=== PATIENT | female | born 1965 | race Caucasian/White ===

== ENCOUNTER 2021-04-02 04:52 | Inpatient (IN) | payer BC ==
[~2021-04-02] VITALS: Ht 170.2 cm; Wt 78.0 kg
[2021-04-02 05:00] VITALS: BP_SYST 116
--- NOTE | 2021-04-02 05:00 | NUR ---
Patient triaged and placed in waiting room. VSS and patient appears in no acute distress at this time. Accompanied by FAM MEMBER, awaiting available bed, and MD notified of need for MSE.
--- NOTE | 2021-04-02 05:36 | NUR ---
ER examining patient iin the triage room.
[2021-04-02] MEDS ORDERED: ONDANSETRON HCL 4 MG/2 ML VIAL IVP ONE (06:00)
[2021-04-02] MEDS ORDERED: NACL 0.9% 1,000 ML IV ONE (06:00)
--- NOTE | 2021-04-02 06:00 | NUR ---
Patient to ER bed PAREDES 1 to gown for evaluation. Side rails up. Report given to CAMILLE ESQUEDA.
--- NOTE | 2021-04-02 06:01 | NUR ---
Received patient to ER w/ c/o right flank and upper abd pain. Patient recently had procedure performed at local facility (colonoscopy) 2nd to h/o multiple gallstones and patient to have stent placed. Introduced self to patient positioned for comfort. continue to monitor. Patient resting quietly. No acute distress noted. Vital signs within normal range.
[2021-04-02 06:05] LABS: BASOPHILS % (AUTO) 0.3 % (0.0-2.0); EOSINOPHILS % (AUTO) 0.2 % (0.0-4.0); HEMATOCRIT 43.6 % (36-48); LYMPHOCYTES # (AUTO) 1.1 K/uL (1.0-5.5); LYMPHOCYTES % (AUTO) 11.7 % (20.5-51.5); MEAN CORPUSCULAR HEMOGLOBIN 30 pg (27-31); MEAN CORPUSCULAR HGB CONC 34 % (32-36); MEAN CORPUSCULAR VOLUME 86 fL (79.0-98.0); MONOCYTES # (AUTO) 0.7 K/uL (0.0-1.0); MONOCYTES % (AUTO) 7.8 % (1.7-9.3); NEUTROPHILS # (AUTO) 7.2 K/uL (1.8-7.7); PLATELET COUNT (AUTO) 202 K/uL (130-430); RED BLOOD CELL COUNT(AUTO) 5.07 MIL/uL (4.2-6.2); RED CELL DISTRIBUTION WIDTH 13.2 % (9.0-15.0)
--- NOTE | 2021-04-02 06:10 | NUR ---
# 20 gauge angiocath placed to Left Forearm. Use of asceptic technique. Opsite placed over site. Blood return noted. No evidence of infiltration noted. Patient tolerated well.
--- NOTE | 2021-04-02 06:10 | NUR ---
Medicated 4mg of zofran dominick MCCABE orders. IVF 0.9% NS infusing with no s/s of infiltration at this time. Will cont to monitor and observe for any adverse reaction.
--- NOTE | 2021-04-02 06:20 | NUR ---
Note undone in EDM - 04/02/21 at 0622 by [email or web address] # 20 gauge angiocath placed to Left Forearm. Use of asceptic technique. Opsite placed over site. Blood return noted. No evidence of infiltration noted. Patient tolerated well.
[2021-04-02 06:21] LABS: CALCIUM 9.3 mg/dL (8.4-11.0); CREATININE 0.92 mg/dL (0.55-1.30); POTASSIUM 4.2 mmol/L (3.5-5.1)
[2021-04-02 06:28] LABS: TOTAL BILIRUBIN 0.6 mg/dL (0.0-1.0)
--- NOTE | 2021-04-02 07:45 | NUR ---
admit orders rec'd
[2021-04-02] MEDS ORDERED: MORPHINE 4 MG INJ. 4 MG/ML VIAL IVP ONE (08:30)
[2021-04-02] MEDS ORDERED: PROCHLORPERAZINE EDISYLATE 10 MG/2 ML VIAL IVP ONE (08:30)
[2021-04-02] MEDS: D5/0.45 NS 1,000 ML IV SCH ×2 (08:55→19:37)
[2021-04-02 08:56] LABS: BILIRUBIN,URINE NEGATIVE (NEGATIVE); BLOOD, URINE NEGATIVE (NEGATIVE); CLARITY/URINE CLEAR (CLEAR); COLOR,URINE YELLOW (YELLOW); GLUCOSE,URINE NEGATIVE (NEGATIVE); KETONES,URINE NEGATIVE (NEGATIVE); LEUKOCYTE ESTERASE ,URINE NEGATIVE (NEGATIVE); NITRITE, URINE NEGATIVE (NEGATIVE); PROTEIN URINE NEGATIVE (NEGATIVE); UROBILINOGEN,URINE 0.2 (0.2-1.0)
--- NOTE | 2021-04-02 09:52 | NUR ---
Pt resting in bed at this time, VSS, respirations even and unlabored, cap refill <3
[2021-04-02] MEDS ORDERED: ONDANSETRON HCL 4 MG/2 ML VIAL ONE (12:44)
[2021-04-02] MEDS ORDERED: ONDANSETRON HCL 4 MG/2 ML VIAL IM PRN (12:45)
[2021-04-02] MEDS ORDERED: MORPHINE 2 MG/ML INJ. SYRINGE ONE (12:45)
[2021-04-02] MEDS: MORPHINE 2 MG/ML INJ. SYRINGE IVP PRN (12:55)
--- NOTE | 2021-04-02 12:55 | NUR ---
Pt medicated for pain as ordered, well tolerated, will cont to monitor.
--- NOTE | 2021-04-02 14:30 | NUR ---
Patient will be admitted to care of Dr Cash . Admitted to Medsurg unit. Will go to room 119 B. Belongings list completed. Complete and up to date summary report printed. SBAR report to be given at bedside with opportunity for questions.
[2021-04-02] MEDS ORDERED: CITA10TA17 PO (14:38)
[2021-04-02] MEDS ORDERED: [UNRECOGNIZED DRUG - OTHER] (14:38)
[2021-04-02] MEDS ORDERED: PROG200C11 PO (14:38)
[2021-04-02] MEDS ORDERED: TRAZ-250 PO (14:38)
[2021-04-02] MEDS ORDERED: PROP20SO PO (14:38)
[2021-04-02] MEDS ORDERED: PROP10TA10 PO (14:38)
--- NOTE | 2021-04-02 14:38 | NUR ---
Medication reconciliation completed with information provided by patient . Any prior medication reconciliation on file was reviewed and corrected.
--- NOTE | 2021-04-02 14:55 | NUR ---
Admission Note Received patient from ER with diagnosis of Pancreatitis. Initial Plan of Care discussed-patient verbalized her understanding. Patient's at bedside. Oriented to room, call light, pain management and safety.
[2021-04-02 15:23] VITALS: BP_SYST 114
--- NOTE | 2021-04-02 16:15 | NUR ---
CONSULTATION PAGED/CALLED Reason for Consultation: PANCREATITIS Person Who was Notified: MANSOOR Consulting Physician: FANI MARTINES PRINTING PRESSMAN Basting Cleaner Specialty: GI Ordering Physician: Skyler AUSTIN
[2021-04-02] MEDS: MORPHINE 4 MG INJ. 4 MG/ML VIAL IVP PRN (17:29)
--- NOTE | 2021-04-02 19:30 | NUR ---
CHANGE OF SHIFT; endorsed by day shift. DX Pancreatitis, kept NPO. no distress. call light within reach.
--- NOTE | 2021-04-02 19:40 | NUR ---
CLOSING NOTE Pt resting quietly in bed with no s/s resp distress, no further c/o pain or discomfort. IVF infusing well to LAC at ordered rate with no s/s infiltration to site. report given to Sehela ESQUEDA. Needs met, call light within reach.
[2021-04-02 20:00] VITALS: BP_SYST 114
--- NOTE | 2021-04-02 20:00 | NUR ---
NOTES: pt. awake, resting. denies any discomfort at this time. IVF infusing. still NPO. instructed to call for help. VS checked.
[2021-04-03] MEDS: MORPHINE 4 MG INJ. 4 MG/ML VIAL IVP PRN ×2 (00:52→08:20)
--- NOTE | 2021-04-03 00:55 | NUR ---
NOTES: pt. medicated for c/o abdominal pain and migraine. ambulated to the restroom. kept NPO.
[2021-04-03 01:00] VITALS: BP_SYST 126
[2021-04-03] MEDS: ONDANSETRON HCL 4 MG/2 ML VIAL IVP PRN ×2 (04:41→20:32)
[2021-04-03] MEDS: D5/0.45 NS 1,000 ML IV SCH (04:41)
--- NOTE | 2021-04-03 04:48 | NUR ---
NOTES: pt. called c/o nausea, medicated with IV Zofran. repositioned self. IVF patent. continue to monitor.
--- NOTE | 2021-04-03 06:34 | NUR ---
CLOSING NOTES; pt. been asleep, no vomiting. IVF continuous. kept NPO. been ambulating to the restroom. for further care and assist. call light within reach.
[2021-04-03 06:54] LABS: BASOPHILS % (AUTO) 0.1 % (0.0-2.0); EOSINOPHILS % (AUTO) 0.2 % (0.0-4.0); HEMATOCRIT 42.8 % (36-48); HEMOGLOBIN 14.6 g/dL (12.0-16.0); LYMPHOCYTES # (AUTO) 0.7 K/uL (1.0-5.5); MEAN CORPUSCULAR HEMOGLOBIN 30 pg (27-31); MEAN CORPUSCULAR HGB CONC 34 % (32-36); MEAN CORPUSCULAR VOLUME 87 fL (79.0-98.0); MONOCYTES # (AUTO) 0.4 K/uL (0.0-1.0); MONOCYTES % (AUTO) 4.1 % (1.7-9.3); NEUTROPHILS # (AUTO) 8.3 K/uL (1.8-7.7); NEUTROPHILS % (AUTO) 88.6 % (40.0-70.0); PLATELET COUNT (AUTO) 193 K/uL (130-430); RED BLOOD CELL COUNT(AUTO) 4.93 MIL/uL (4.2-6.2); RED CELL DISTRIBUTION WIDTH 13.4 % (9.0-15.0); WHITE BLOOD COUNT (AUTO) 9.4 K/uL (4.8-10.8)
[2021-04-03 07:50] LABS: ALBUMIN 3.6 g/dL (3.4-4.8); CALCIUM 8.4 mg/dL (8.4-11.0); CREATININE 0.81 mg/dL (0.55-1.30); PHOSPHORUS 2.6 mg/dL (2.7-4.5); POTASSIUM 3.3 mmol/L (3.5-5.1); TOTAL BILIRUBIN 0.3 mg/dL (0.0-1.0)
[2021-04-03 08:15] VITALS: BP_SYST 137
--- NOTE | 2021-04-03 08:30 | NUR ---
OPENING NOTES: PATIENT RESTING IN BED. BREATHING EVEN AND NON LABORED TO RA. C/O PAIN THE ABDOMEN, PRN PAIN MED GIVEN. FALL, SAFETY AND ASPIRATION MEASURES REINFORCED. CALL LIGHT WITHIN REACH
[2021-04-03] MEDS: LR 1,000 ML IV SCH ×3 (09:47→21:40)
--- NOTE | 2021-04-03 10:00 | NUR ---
SPOKE TO DR. AUSTIN (RE: ELEVATED AMYLASE AND LIPASE): SPOKE TO DR. AUSTIN REGARDING THE CRITICAL RESULT LIPASE AND AMYLASE. PER DR. AUSTIN WILL SEE THE PATIENT.
[2021-04-03 11:25] VITALS: BP_SYST 128
[2021-04-03] MEDS ORDERED: K PHOS 15 MM in NS 250 ML IV ONE (11:30)
[2021-04-03] MEDS: MORPHINE 2 MG/ML INJ. SYRINGE IVP PRN (14:54)
[2021-04-03 15:24] VITALS: BP_SYST 129
--- NOTE | 2021-04-03 19:31 | NUR ---
CLOSING NOTES: PATIENT RESTING IN BED. NO S/S OF ACUTE DISTRESS NOTED. IV INFUSING WELL. CALL LIGHT WITHIN REACH.
[2021-04-04 00:28] VITALS: BP_SYST 132
[2021-04-04 04:46] VITALS: BP_SYST 125
[2021-04-04] MEDS: LR 1,000 ML IV SCH ×3 (05:10→18:17)
[2021-04-04] MEDS: MORPHINE 2 MG/ML INJ. SYRINGE IVP PRN (05:19)
[2021-04-04 07:16] LABS: BASOPHILS % (AUTO) 0.1 % (0.0-2.0); EOSINOPHILS % (AUTO) 0.3 % (0.0-4.0); HEMOGLOBIN 13.7 g/dL (12.0-16.0); LYMPHOCYTES # (AUTO) 0.8 K/uL (1.0-5.5); LYMPHOCYTES % (AUTO) 9.8 % (20.5-51.5); MEAN CORPUSCULAR HEMOGLOBIN 30 pg (27-31); MEAN CORPUSCULAR HGB CONC 34 % (32-36); MEAN CORPUSCULAR VOLUME 86 fL (79.0-98.0); MONOCYTES # (AUTO) 0.3 K/uL (0.0-1.0); MONOCYTES % (AUTO) 4.3 % (1.7-9.3); NEUTROPHILS # (AUTO) 6.9 K/uL (1.8-7.7); NEUTROPHILS % (AUTO) 85.5 % (40.0-70.0); PLATELET COUNT (AUTO) 177 K/uL (130-430); RED BLOOD CELL COUNT(AUTO) 4.64 MIL/uL (4.2-6.2); RED CELL DISTRIBUTION WIDTH 13.3 % (9.0-15.0); WHITE BLOOD COUNT (AUTO) 8.1 K/uL (4.8-10.8)
--- NOTE | 2021-04-04 07:59 | NUR ---
DR TAYLOR CAME TO EVALUATE THE PATIENT. DR AUSTIN CALLED FOR PAIN MEDICATION.
[2021-04-04 08:13] LABS: ALBUMIN 3.5 g/dL (3.4-4.8); CALCIUM 9.3 mg/dL (8.4-11.0); CREATININE 0.59 mg/dL (0.55-1.30); POTASSIUM 3.8 mmol/L (3.5-5.1); TOTAL BILIRUBIN 0.6 mg/dL (0.0-1.0)
[2021-04-04 08:42] VITALS: BP_SYST 133
--- NOTE | 2021-04-04 08:52 | NUR ---
dr boston called back again for pain medication order.
[2021-04-04] MEDS: LORazepam 2 MG/ML VIAL IVP PRN (08:56)
--- NOTE | 2021-04-04 10:00 | NUR ---
NO DUE MEDICATION AT THIS TIME.
[2021-04-04 11:21] VITALS: BP_SYST 126
[2021-04-04] MEDS: KETOROLAC TROMETHAMINE 30 MG VIAL IVP PRN (12:12)
[2021-04-04 15:40] VITALS: BP_SYST 126
[2021-04-04] MEDS ORDERED: KETOROLAC TROMETHAMINE 30 MG VIAL IVP PRN ×2 (17:15)
--- NOTE | 2021-04-04 17:59 | NUR ---
STILL WITH LEFT FOREARM #20 WITH LR AT 150CC/HR INFUSING ON WELL. WILL CONTINUE TO MONITOR PATIENTS STATUS.
[2021-04-04] MEDS ORDERED: NON-FORMULARY MEDICATION (Progesterone,Micronized (Progesterone) 200 MG) PO SCH (18:00)
[2021-04-04] MEDS ORDERED: traZODone HCL 50 MG TABLET (DESYREL) PO PRN (18:00)
[2021-04-04 20:00] VITALS: BP_SYST 130
[2021-04-04] MEDS: PROPRANOLOL HCL 10 MG TABLET (INDERAL) PO SCH (21:38)
[2021-04-05] MEDS: KETOROLAC TROMETHAMINE 30 MG VIAL IVP PRN (00:25)
[2021-04-05] MEDS: LR 1,000 ML IV SCH (00:25)
[2021-04-05 01:00] VITALS: BP_SYST 129
[2021-04-05] MEDS: LORazepam 2 MG/ML VIAL IVP PRN (05:06)
[2021-04-05 07:03] LABS: BASOPHILS % (AUTO) 0.5 % (0.0-2.0); EOSINOPHILS # (AUTO) 0.3 K/uL (0.0-0.4); EOSINOPHILS % (AUTO) 3.5 % (0.0-4.0); HEMATOCRIT 39.5 % (36-48); HEMOGLOBIN 13.5 g/dL (12.0-16.0); LYMPHOCYTES # (AUTO) 0.9 K/uL (1.0-5.5); LYMPHOCYTES % (AUTO) 12.3 % (20.5-51.5); MEAN CORPUSCULAR HEMOGLOBIN 30 pg (27-31); MEAN CORPUSCULAR HGB CONC 34 % (32-36); MEAN CORPUSCULAR VOLUME 86 fL (79.0-98.0); MONOCYTES # (AUTO) 0.5 K/uL (0.0-1.0); MONOCYTES % (AUTO) 6.8 % (1.7-9.3); NEUTROPHILS # (AUTO) 5.8 K/uL (1.8-7.7); NEUTROPHILS % (AUTO) 76.9 % (40.0-70.0); PLATELET COUNT (AUTO) 192 K/uL (130-430); RED BLOOD CELL COUNT(AUTO) 4.57 MIL/uL (4.2-6.2); RED CELL DISTRIBUTION WIDTH 13.6 % (9.0-15.0); WHITE BLOOD COUNT (AUTO) 7.5 K/uL (4.8-10.8)
--- NOTE | 2021-04-05 08:00 | NUR ---
NOTES PATIENT AAOX 4. LUNGS BILATERALLY CLEAR. ABDOMEN SOFT AND NON DISTENDED BUT BIT TENDER, REFUSED TO HAVE MORE PAIN MEDICATION. HAS IV ACCESS ON THE LEFT FOREARM BUT LEAKING NOTED. CALL LIGHTS WITHIN REACH. BED LOW POSITION, ALARMED AND LOCKED. WILL CONTINUE TO MONITOR PATIENTS STATUS. VERBALIZED BIT ABDOMINAL PAIN, BUT REFUSED. VITALS SIGNS STABLE.
[2021-04-05 08:43] LABS: ALBUMIN 3.2 g/dL (3.4-4.8); CALCIUM 8.9 mg/dL (8.4-11.0); CREATININE 0.71 mg/dL (0.55-1.30); POTASSIUM 4.4 mmol/L (3.5-5.1); TOTAL BILIRUBIN 0.5 mg/dL (0.0-1.0)
[2021-04-05] MEDS ORDERED: [UNRECOGNIZED DRUG - OTHER] PO SCH (09:00)
[2021-04-05] MEDS ORDERED: CITALOPRAM HYDROBROMIDE 20 MG TABLET PO SCH (09:00)
--- NOTE | 2021-04-05 09:00 | NUR ---
PAIN FREE FROM ABDOMINAL AREA VERBALIZED.
[2021-04-05] MEDS: PROPRANOLOL HCL 10 MG TABLET (INDERAL) PO SCH (09:59)
--- NOTE | 2021-04-05 10:00 | NUR ---
CHEVY ESQUEDA PLACE ANOTHER IV ACCESS ON THE RIGHT FOREARM #22. ON THE LEFT FOREARM IV INFILTRATED.
[2021-04-05 10:01] VITALS: BP_SYST 130
--- NOTE | 2021-04-05 10:30 | NUR ---
HANGED THE LR AT 150CC/HR INFUSING ON WELL.
--- NOTE | 2021-04-05 12:30 | NUR ---
ON SOFT LOW BLAND DIET. CALLED ANTONI THE MEDIA PRODUCTION SUPPORT MANAGER TO DO INSTRUCTIONS ON THE DIET AND MATERIAL GIVEN TO THE PATIENT.
--- NOTE | 2021-04-05 13:00 | NUR ---
NO NAUSEA NOR VOMITTING NOR ABDOMINAL PAIN NOTED.
--- NOTE | 2021-04-05 13:30 | NUR ---
DR GEOVANNA DUKE CAME AND SEE THE PATIENT FOR POSSIBLE DISCHARGE HOME
[2021-04-05 13:47] VITALS: BP_SYST 128
--- NOTE | 2021-04-05 14:05 | NUR ---
Nutrition Note and Education RD was consulted by pt's primary RN regarding nutrition education prior to D/C. Please refer to interdisciplinary teaching record for details.
--- NOTE | 2021-04-05 14:35 | NUR ---
PATIENT LEFT IN STABLE CONDITION. WITH THE . IV ACCESS X 2 REMOVED PLACED BAND AID. ON IT. SDCH I D BAND REMOVED. DISCHARGE INSTRUCTIONS GIVEN TO THE PATIENT. CONTINUE SAME MEDICATIONS ORDERED PREVIOUSLY AND TO SEE DR GEOVANNA DUKE IN ONE WEEK. AND MAKE APPOINTMENT TO SEE [facility] FOR FOLLOW UP OF THE STENT IN TWO WEEK.S VITALS SIGNS STABLE. AFEBRILE. NO S/S OF DISTRESS OR PAIN NOTED.
[2021-04-05 15:06] VITALS: BP_SYST 113
== END 2021-04-05 14:35 | disposition home or self-care (01) | DRG 444 ==
LOC: SED 04:52 → SMU 07:40
PROVIDERS: ADMIT Preventive Medicine Preventive Medicine/Occupational Environmental Medicine; ATTEND Preventive Medicine Preventive Medicine/Occupational Environmental Medicine
DX: K80.70 Calculus of gallbladder and bile duct without cholecystitis without obstruction (principal); K85.90 Acute pancreatitis without necrosis or infection, unspecified; E87.1 Hypo-osmolality and hyponatremia; R73.9 Hyperglycemia, unspecified; R74.01 Elevation of levels of liver transaminase levels; E88.09 Other disorders of plasma-protein metabolism, not elsewhere classified; F32.A Depression, unspecified; E83.39 Other disorders of phosphorus metabolism; Z20.822 Contact with and (suspected) exposure to COVID-19; E03.9 Hypothyroidism, unspecified; G43.909 Migraine, unspecified, not intractable, without status migrainosus; E87.6 Hypokalemia; Z88.8 Allergy status to other drugs, medicaments and biological substances
CPT/HCPCS: 36415; 76376; 80053; 81003; 82150; 83690; 83735; 84100; 85025; 96361; 96374; 96375; 96376; 99285; J0780; J1885; J2060; J2270; J2405; J7050; Q9967

== ENCOUNTER 2021-04-08 17:19 | Inpatient (IN) | payer BC, SELFPAY ==
[~2021-04-08] VITALS: Ht 170.2 cm; Wt 73.9 kg
[~2021-04-08 17:19] MED LIST: CITA10TA17 PO; PROG200C11 PO; PROP10TA10 PO; PROP20SO PO; TRAZ-250 PO; [UNRECOGNIZED DRUG - OTHER]
[2021-04-08 17:25] VITALS: BP_SYST 124
--- NOTE | 2021-04-08 17:25 | NUR ---
PT TRIAGED AND PLACED IN WAITING ROOM FOR BED IN MAIN ER
--- NOTE | 2021-04-08 18:56 | NUR ---
ER DR. BRYAN EXAMINING PT IN LOBBY
[2021-04-08] MEDS ORDERED: ONDANSETRON HCL 4 MG/2 ML VIAL IVP ONE (19:00)
[2021-04-08] MEDS ORDERED: MORPHINE 4 MG INJ. 4 MG/ML VIAL IVP ONE (19:00)
[2021-04-08 19:48] LABS: BASOPHILS % (AUTO) 0.3 % (0.0-2.0); EOSINOPHILS # (AUTO) 0.2 K/uL (0.0-0.4); EOSINOPHILS % (AUTO) 1.8 % (0.0-4.0); HEMATOCRIT 46.8 % (36-48); HEMOGLOBIN 15.7 g/dL (12.0-16.0); LYMPHOCYTES # (AUTO) 1.7 K/uL (1.0-5.5); LYMPHOCYTES % (AUTO) 16.5 % (20.5-51.5); MEAN CORPUSCULAR HEMOGLOBIN 29 pg (27-31); MEAN CORPUSCULAR HGB CONC 34 % (32-36); MEAN CORPUSCULAR VOLUME 86 fL (79.0-98.0); MONOCYTES # (AUTO) 0.7 K/uL (0.0-1.0); MONOCYTES % (AUTO) 6.4 % (1.7-9.3); NEUTROPHILS # (AUTO) 7.6 K/uL (1.8-7.7); PLATELET COUNT (AUTO) 298 K/uL (130-430); RED BLOOD CELL COUNT(AUTO) 5.43 MIL/uL (4.2-6.2); RED CELL DISTRIBUTION WIDTH 13.6 % (9.0-15.0); WHITE BLOOD COUNT (AUTO) 10.2 K/uL (4.8-10.8)
[2021-04-08 20:08] LABS: CALCIUM 9.7 mg/dL (8.4-11.0); CREATININE 0.84 mg/dL (0.55-1.30); POTASSIUM 3.5 mmol/L (3.5-5.1)
[2021-04-08 20:14] LABS: ALBUMIN 4.3 g/dL (3.4-4.8); TOTAL BILIRUBIN 0.5 mg/dL (0.0-1.0)
--- NOTE | 2021-04-08 21:00 | NUR ---
Patient to ER bed 3 to gown for evaluation. Side rails up.
--- NOTE | 2021-04-08 21:05 | NUR ---
Patient AAOx4 and ambulatory from home c/o worsening abdominal pain. stated she was hospital recently on 04/05/21 for stent placement in her gallbladder. was working to advance her diet however stating having pain in the area of her pancreas. denies any SOB, chest pain, N/V/D. currently stating 10/10 on the pain scale.
--- NOTE | 2021-04-08 21:15 | NUR ---
# 20 gauge angiocath placed to LEFT AC. Use of asceptic technique. Opsite placed over site. Blood return noted. Flushed with 10 cc of normal saline. No evidence of infiltration noted. Patient tolerated well.
--- NOTE | 2021-04-08 21:20 | NUR ---
CT SCAN CONSENT SIGNED. AND PT TAKEN TO RADIOLOGY VIA [facility] AT RADIOLOGY STAFF.
--- NOTE | 2021-04-08 21:29 | NUR ---
PT RETURNED FROM CT SCAN VIA GURNEY BY RADIOLOGY STAFF. RE-ATTACHED TO [employer].
[2021-04-08] MEDS ORDERED: LR 1,000 ML IV ONE (21:45)
[2021-04-08] MEDS ORDERED: HYDROmorphone 1 MG/ML INJ. CARTRIDGE IVP ONE (22:00)
--- NOTE | 2021-04-08 22:20 | NUR ---
Dr. Bolden at bedside to give update on condition with patient.
--- NOTE | 2021-04-08 23:17 | NUR ---
COVID AND MRSA SWAB COLLECTED AND SENT TO LAB.
--- NOTE | 2021-04-08 23:30 | NUR ---
Patient's code status is [FULL CODE] paperwork completed and placed in chart.
[2021-04-08] MEDS ORDERED: THEA200C PO (23:43)
--- NOTE | 2021-04-08 23:43 | NUR ---
Medication reconciliation completed with information provided by Patient. Any prior medication reconciliation on file was reviewed and corrected.
[2021-04-09 00:20] LABS: BILIRUBIN,URINE NEGATIVE (NEGATIVE); BLOOD, URINE NEGATIVE (NEGATIVE); CLARITY/URINE CLEAR (CLEAR); COLOR,URINE YELLOW (YELLOW); GLUCOSE,URINE NEGATIVE (NEGATIVE); KETONES,URINE 1+ (NEGATIVE); LEUKOCYTE ESTERASE ,URINE NEGATIVE (NEGATIVE); NITRITE, URINE NEGATIVE (NEGATIVE); PROTEIN URINE NEGATIVE (NEGATIVE); UROBILINOGEN,URINE 0.2 (0.2-1.0)
[2021-04-09] MEDS ORDERED: MORPHINE 4 MG INJ. 4 MG/ML VIAL IVP PRN (00:45)
[2021-04-09] MEDS ORDERED: MORPHINE 2 MG/ML INJ. SYRINGE IVP PRN (00:45)
[2021-04-09] MEDS: D5/0.45 NS 1,000 ML IV SCH ×2 (00:55→09:30)
--- NOTE | 2021-04-09 00:56 | NUR ---
Medicated per MD orders. IVF infusing with no s/s of infiltration at this time. PT STATED HAVING 7/10 ON THE PAIN SCALE. PRN MORPHINE Q4 GIVEN ORDERED PER GEOVANNA.
--- NOTE | 2021-04-09 02:46 | NUR ---
Transfer to [facility] via GURNEY TO ROOM 116B. Licensed nurse present. IV present no signs or symptoms of infiltration.
--- NOTE | 2021-04-09 03:22 | NUR ---
ADMISSION NOTE Received patient from ER via gurney. Patient admitted with diagnosis of gallstones. Patient is awake, alert, oriented X 4. Patient oriented to hospital room, call light, toileting, pain management and safety-teach back done. Patient informed that their room number is 116B. Personal belongings checked and Belongings List documented. Call light within reach.
--- NOTE | 2021-04-09 03:25 | NUR ---
CONSULTATION CALLED FOR DR. FANI MARTINES IS AERONAUTICAL ENGINEERING OFFICER FOR CONSULT OF GALLSTONES ORDER BY GEOVANNA ROLAND SPOKE WITH Addendum: 04/09/21 at 0333 by Nas Hoff CNA SPOKE WITH ELEANOR
--- NOTE | 2021-04-09 03:30 | NUR ---
CONSULTATION CALLED FOR DR. SAXENA FOR CONSULT OF GALLSTONES ORDER BY GEOVANNA ROLAND SPOKE WITH ELEANOR
--- NOTE | 2021-04-09 03:37 | NUR ---
Paged Dr. Cerna Mark
[2021-04-09 03:47] VITALS: BP_SYST 110
[2021-04-09] MEDS: HYDROmorphone 1 MG/ML INJ. CARTRIDGE IVP PRN ×4 (04:33→20:07)
--- NOTE | 2021-04-09 05:44 | NUR ---
Nutrition Update Dax Scale 18 noted. Pt admitted for Gallstones Diet: NPO BMI: 25.6 kg/m2 RD to follow per nutrition care standards.
[2021-04-09 08:28] VITALS: BP_SYST 124
--- NOTE | 2021-04-09 09:45 | NUR ---
OPENING Late entry due to patient care 08:10- patient laying in bed. Does not appear to be in respiratory distress. C/o right lower quadrant pain radiating to her back 11/20. Ensouraged deep breathing exercises. Medicated with [address] MARTINES at the bedside. reviewed CT abdomen report from yesterday and discussed with patient. Plan of care discussed with patient. patient verbalized understanding
[2021-04-09 12:35] VITALS: BP_SYST 121
--- NOTE | 2021-04-09 14:27 | NUR ---
1245 TO [facility] PROCEDURE, GOT 1MG IVP DILAUDID FOR THE ABDOMINAL PAIN , 8/10 SCALE 1400 BACK FROM THE PROCEDURE, RESULT NOT READY YET, BOTH THE PATIENT AND EXPLAINED , IN BETWEEN DILAUDID, PATIENT CAN HAVE TORADOL IF SHE NEEDS IT. REMAINS NPO WITH IVF RUNNING CONTINUOULSY.
[2021-04-09] MEDS: KETOROLAC TROMETHAMINE 30 MG VIAL IVP PRN (17:01)
[2021-04-09 18:10] VITALS: BP_SYST 107
[2021-04-09 20:00] VITALS: BP_SYST 112
--- NOTE | 2021-04-09 22:00 | NUR ---
ROUNDING NOTES Patient resting in bed - no s/s pain or distress noted. Respirations even and unlabored - head of bed elevated. IV site patent - no s/s redness, infection, or infiltration. Bed locked and in lowest position. Call light within reach - bed alarm on.
[2021-04-10] VITALS: BP_SYST 115
[2021-04-10] MEDS: KETOROLAC TROMETHAMINE 30 MG VIAL IVP PRN ×2 (00:55→09:46)
[2021-04-10] MEDS: D5/0.45 NS 1,000 ML IV SCH ×3 (00:56→09:50)
[2021-04-10] MEDS: HYDROmorphone 1 MG/ML INJ. CARTRIDGE IVP PRN ×2 (05:17→14:20)
[2021-04-10] MEDS: ONDANSETRON HCL 4 MG/2 ML VIAL IVP PRN ×2 (05:24→14:23)
[2021-04-10 07:20] LABS: BASOPHILS % (AUTO) 0.1 % (0.0-2.0); EOSINOPHILS % (AUTO) 0.2 % (0.0-4.0); HEMATOCRIT 39.3 % (36-48); HEMOGLOBIN 13.2 g/dL (12.0-16.0); LYMPHOCYTES # (AUTO) 0.8 K/uL (1.0-5.5); MEAN CORPUSCULAR HEMOGLOBIN 29 pg (27-31); MEAN CORPUSCULAR HGB CONC 34 % (32-36); MEAN CORPUSCULAR VOLUME 86 fL (79.0-98.0); MONOCYTES # (AUTO) 1.1 K/uL (0.0-1.0); MONOCYTES % (AUTO) 8.1 % (1.7-9.3); NEUTROPHILS % (AUTO) 85.6 % (40.0-70.0); PLATELET COUNT (AUTO) 210 K/uL (130-430); RED BLOOD CELL COUNT(AUTO) 4.57 MIL/uL (4.2-6.2); RED CELL DISTRIBUTION WIDTH 13.3 % (9.0-15.0)
[2021-04-10 07:53] LABS: ALBUMIN 2.9 g/dL (3.4-4.8); CALCIUM 8.2 mg/dL (8.4-11.0); CREATININE 0.72 mg/dL (0.55-1.30); PHOSPHORUS 2.3 mg/dL (2.7-4.5); POTASSIUM 3.5 mmol/L (3.5-5.1); TOTAL BILIRUBIN 0.6 mg/dL (0.0-1.0)
[2021-04-10 08:00] VITALS: BP_SYST 124
[2021-04-10] MEDS ORDERED: NA PHOS 15 MM in NS 250 ML IV ONE (11:30)
[2021-04-10 12:35] VITALS: BP_SYST 129
[2021-04-10 16:55] VITALS: BP_SYST 131
--- NOTE | 2021-04-10 17:11 | NUR ---
TO OR: To Or per el by Or staff. Preop check list done. CHG bath rendered.Npo maintained.
[2021-04-10] MEDS ORDERED: fentaNYL CITRATE 250 MCG/5 ML AMP IV ONE (17:20)
[2021-04-10] MEDS ORDERED: KETOROLAC TROMETHAMINE 30 MG VIAL IVP ONE (17:20)
[2021-04-10] MEDS ORDERED: BUPIVACAINE /EPINEPHRINE/PF 0.25% 30 ML VIAL INJ ONE (17:20)
[2021-04-10] MEDS ORDERED: NS IRRIG SOLN 1000 ML IR ONE (17:20)
[2021-04-10] MEDS ORDERED: CEFAZOLIN 2 GM IVPB PREMIX 50 ML IV ONE (17:20)
[2021-04-10] MEDS ORDERED: PROPOFOL 200MG/ 20ML VIAL (DIPRIVAN) IV ONE (17:20)
[2021-04-10] MEDS ORDERED: LR 1,000 ML IV.SOLN IV ONE (17:20)
[2021-04-10] MEDS ORDERED: WATER FOR IRRIGATION,STERILE 1,000 ML IRRIG.SOLN IR ONE (17:20)
[2021-04-10] MEDS ORDERED: SEVOFLURANE 15 MIN GAS INH ONE (17:20)
[2021-04-10] MEDS ORDERED: MIDAZOLAM HCL 5 MG/5 ML VIAL IVP ONE (17:20)
[2021-04-10] MEDS ORDERED: ROCURONIUM BROMIDE 10 MG/ML (ZEMURON) IV ONE (17:20)
[2021-04-10] MEDS ORDERED: PHENYLEPHRINE HCL 10 MG/ML VIAL (NEOSYNEPHRINE) IV ONE (17:20)
[2021-04-10] MEDS ORDERED: METOCLOPRAMIDE HCL 10 MG/2 ML VIAL IVP ONE (17:20)
[2021-04-10] MEDS ORDERED: GLYCOPYRROLATE 0.2 MG/ML VIAL IJ ONE (17:20)
[2021-04-10] MEDS ORDERED: ONDANSETRON HCL 4 MG/2 ML VIAL IVP ONE (17:20)
[2021-04-10] MEDS ORDERED: SUCCINYLCHOLINE CHLORIDE 20 MG/ML(QUELICIN) IVP ONE (17:20)
[2021-04-10] MEDS ORDERED: HYDROmorphone 1 MG/ML INJ. CARTRIDGE IVP PRN (17:45)
[2021-04-10] MEDS ORDERED: LR 1,000 ML IV SCH (17:45)
[2021-04-10] MEDS ORDERED: ONDANSETRON HCL 4 MG/2 ML VIAL IVP PRN (17:45)
[2021-04-10] MEDS ORDERED: HYDROmorphone 2 MG/ML VIAL IVP PRN (17:45)
[2021-04-10] MEDS ORDERED: KETOROLAC TROMETHAMINE 30 MG VIAL IVP PRN (17:45)
--- NOTE | 2021-04-10 18:53 | NUR ---
Evening Rounds: Patient still at OR.
[2021-04-10] MEDS ORDERED: ACETAMINOPHEN 325 MG TABLET PO PRN (19:00)
[2021-04-10] MEDS ORDERED: NALOXONE HCL 0.4 MG/ML AMP (NARCAN) IVP PRN (19:00)
--- NOTE | 2021-04-10 19:15 | NUR ---
OPENING NOTES Patient is still undergoing surgery at this time - not in room.
[2021-04-10] MEDS ORDERED: HYDROmorphone 1 MG/ML INJ. CARTRIDGE ONE (20:01)
[2021-04-10] MEDS ORDERED: ONDANSETRON HCL 4 MG/2 ML VIAL ONE (20:05)
[2021-04-10 20:45] VITALS: BP_SYST 137
--- NOTE | 2021-04-10 20:45 | NUR ---
RETURN FROM OR 4 incisions and LEILA drain. Patient resting in bed, by bedside.
[2021-04-10] MEDS: CEFAZOLIN 2 GM IVPB PREMIX 50 ML IV SCH (21:13)
[2021-04-10] MEDS: metroNIDAZOLE 500 mg/NS 100 ML IV SCH (21:15)
[2021-04-11] MEDS: D5/0.45 NS 1,000 ML IV SCH ×4 (01:30→20:56)
[2021-04-11 01:53] VITALS: BP_SYST 110
[2021-04-11] MEDS: HYDROmorphone 1 MG/ML INJ. CARTRIDGE IVP PRN ×4 (02:48→21:11)
[2021-04-11] MEDS: ONDANSETRON HCL 4 MG/2 ML VIAL IVP PRN (02:54)
[2021-04-11] MEDS: metroNIDAZOLE 500 mg/NS 100 ML IV SCH (02:54)
[2021-04-11] MEDS: CEFAZOLIN 2 GM IVPB PREMIX 50 ML IV SCH (03:03)
--- NOTE | 2021-04-11 04:00 | NUR ---
ROUNDING NOTES Patient resting in bed - no s/s pain or distress noted. Respirations even and unlabored - head of bed elevated. IV site patent - no s/s redness, infection, or infiltration. Bed locked and in lowest position. Call light within reach - bed alarm on. LEILA drained of 100cc
[2021-04-11 07:09] LABS: BASOPHILS % (AUTO) 0.1 % (0.0-2.0); EOSINOPHILS % (AUTO) 0.1 % (0.0-4.0); HEMATOCRIT 35.2 % (36-48); HEMOGLOBIN 12.1 g/dL (12.0-16.0); LYMPHOCYTES # (AUTO) 0.6 K/uL (1.0-5.5); LYMPHOCYTES % (AUTO) 4.7 % (20.5-51.5); MEAN CORPUSCULAR HEMOGLOBIN 29 pg (27-31); MEAN CORPUSCULAR HGB CONC 34 % (32-36); MEAN CORPUSCULAR VOLUME 85 fL (79.0-98.0); MONOCYTES # (AUTO) 0.7 K/uL (0.0-1.0); MONOCYTES % (AUTO) 5.6 % (1.7-9.3); NEUTROPHILS # (AUTO) 10.7 K/uL (1.8-7.7); NEUTROPHILS % (AUTO) 89.5 % (40.0-70.0); PLATELET COUNT (AUTO) 194 K/uL (130-430); RED BLOOD CELL COUNT(AUTO) 4.13 MIL/uL (4.2-6.2); RED CELL DISTRIBUTION WIDTH 13.4 % (9.0-15.0)
[2021-04-11 07:18] LABS: ALBUMIN 2.3 g/dL (3.4-4.8); CALCIUM 8.1 mg/dL (8.4-11.0); CREATININE 0.73 mg/dL (0.55-1.30); POTASSIUM 3.7 mmol/L (3.5-5.1); TOTAL BILIRUBIN 0.5 mg/dL (0.0-1.0)
--- NOTE | 2021-04-11 07:23 | NUR ---
CLOSING NOTES Patient resting in bed - no s/s pain or distress noted. Respirations even and unlabored - head of bed elevated. IV site patent - no s/s redness, infection, or infiltration. Bed locked and in lowest position. Call light within reach - bed alarm on. AT APPROXIMATELY 0645 NEW IV INSERTED RFA 22G
[2021-04-11 08:20] VITALS: BP_SYST 131
[2021-04-11] MEDS: KETOROLAC TROMETHAMINE 30 MG VIAL IVP PRN ×2 (08:49→18:03)
--- NOTE | 2021-04-11 09:07 | NUR ---
SURGEON CALLED: SPOKE WITH DR SAXENA ,RELAYED LAB RESULTS.WITH ORDERS GIVE LEVAQUIN 750MG IV DAILY,REPEAT CBC AND BMP IN AM.
[2021-04-11 12:00] VITALS: BP_SYST 114
--- NOTE | 2021-04-11 15:45 | NUR ---
PT EVAL COMPLETED. PATIENT IS INDEPENDENT IN ALL ASPECTS OF FUNCTIONAL MOBILITY. SKILLED PT IS NOT INDICATED AT THIS TIME.
[2021-04-11 18:13] VITALS: BP_SYST 131
--- NOTE | 2021-04-11 21:15 | NUR ---
C/O RIGHT LOWER ABDOMINAL PAIN RATED 7/10. DILAUDID IV GIVEN ORDERED.
[2021-04-11] MEDS: LORazepam 2 MG/ML VIAL IVP PRN (23:19)
--- NOTE | 2021-04-11 23:22 | NUR ---
c/o anxiety. Ativan given as ordered.
[2021-04-12 04:18] VITALS: BP_SYST 132
[2021-04-12 08:13] VITALS: BP_SYST 131
--- NOTE | 2021-04-12 08:13 | NUR ---
INITIAL ROUNDS Received pt AAOx4, no s/s resp distress, c/o pain to abd-will check on pain medication. IVF infusing well to RFA at ordered rate with no s/s infiltration to site. Plan of care for the day reviewed with pt-pt verbalized her understanding. Noted 4 x small dressings to abd with LEILA to right abd with minimal pink drainage. Pain management, disease process, skin and safety discussed-teach back done. call light within reach.
[2021-04-12 09:37] LABS: BASOPHILS % (AUTO) 0.1 % (0.0-2.0); EOSINOPHILS # (AUTO) 0.1 K/uL (0.0-0.4); EOSINOPHILS % (AUTO) 1.2 % (0.0-4.0); HEMATOCRIT 38.3 % (36-48); LYMPHOCYTES # (AUTO) 0.7 K/uL (1.0-5.5); LYMPHOCYTES % (AUTO) 8.2 % (20.5-51.5); MEAN CORPUSCULAR HEMOGLOBIN 29 pg (27-31); MEAN CORPUSCULAR HGB CONC 34 % (32-36); MEAN CORPUSCULAR VOLUME 86 fL (79.0-98.0); MONOCYTES # (AUTO) 0.2 K/uL (0.0-1.0); MONOCYTES % (AUTO) 2.8 % (1.7-9.3); NEUTROPHILS # (AUTO) 7.7 K/uL (1.8-7.7); NEUTROPHILS % (AUTO) 87.7 % (40.0-70.0); PLATELET COUNT (AUTO) 263 K/uL (130-430); RED BLOOD CELL COUNT(AUTO) 4.45 MIL/uL (4.2-6.2); RED CELL DISTRIBUTION WIDTH 13.3 % (9.0-15.0); WHITE BLOOD COUNT (AUTO) 8.8 K/uL (4.8-10.8)
[2021-04-12] MEDS: HYDROmorphone 1 MG/ML INJ. CARTRIDGE IVP PRN (09:58)
[2021-04-12 10:06] LABS: ALBUMIN 2.7 g/dL (3.4-4.8); CALCIUM 8.8 mg/dL (8.4-11.0); CREATININE 0.65 mg/dL (0.55-1.30); POTASSIUM 3.7 mmol/L (3.5-5.1); TOTAL BILIRUBIN 0.5 mg/dL (0.0-1.0)
[2021-04-12 11:26] LABS: C-REACTIVE PROTEIN QUANT 22.4 mg/dL (0-0.5)
[2021-04-12 12:12] LABS: ERYTHROCYTE SEDIMENTATION RATE 55 MM/HR (0-20)
[2021-04-12 16:05] VITALS: BP_SYST 110
[2021-04-12] MEDS: HYDROcodone/ACETAMIN 5-325 MG TAB (NORCO/ VICODIN) PO PRN ×2 (16:08→22:15)
[2021-04-12] MEDS: D5/0.45 NS 1,000 ML IV SCH ×2 (16:10→22:00)
--- NOTE | 2021-04-12 19:07 | NUR ---
CLOSING NOTE Pt observed ambulating in the hallway, no s/s resp distress, no c/o pain or discomfort. Pt belching but not passing gas yet. IVF infusing well to RFA at ordered rate with no s/s infiltration to site. Pt encouraged to use the incentive spirometer. Needs met, call light within reach.
[2021-04-12 22:07] VITALS: BP_SYST 127
[2021-04-13 01:14] VITALS: BP_SYST 134
[2021-04-13] MEDS: LORazepam 2 MG/ML VIAL IVP PRN (02:02)
[2021-04-13] MEDS: D5/0.45 NS 1,000 ML IV SCH ×2 (06:17→17:21)
[2021-04-13 08:16] LABS: CREATININE 0.73 mg/dL (0.55-1.30); POTASSIUM 3.4 mmol/L (3.5-5.1)
[2021-04-13 08:27] LABS: BASOPHILS % (AUTO) 0.3 % (0.0-2.0); EOSINOPHILS # (AUTO) 0.3 K/uL (0.0-0.4); EOSINOPHILS % (AUTO) 4.4 % (0.0-4.0); HEMATOCRIT 38.2 % (36-48); HEMOGLOBIN 12.8 g/dL (12.0-16.0); LYMPHOCYTES # (AUTO) 1.7 K/uL (1.0-5.5); LYMPHOCYTES % (AUTO) 21.7 % (20.5-51.5); MEAN CORPUSCULAR HEMOGLOBIN 29 pg (27-31); MEAN CORPUSCULAR HGB CONC 34 % (32-36); MEAN CORPUSCULAR VOLUME 86 fL (79.0-98.0); MONOCYTES # (AUTO) 0.5 K/uL (0.0-1.0); MONOCYTES % (AUTO) 6.6 % (1.7-9.3); NEUTROPHILS # (AUTO) 5.2 K/uL (1.8-7.7); PLATELET COUNT (AUTO) 328 K/uL (130-430); RED BLOOD CELL COUNT(AUTO) 4.45 MIL/uL (4.2-6.2); RED CELL DISTRIBUTION WIDTH 13.6 % (9.0-15.0); WHITE BLOOD COUNT (AUTO) 7.7 K/uL (4.8-10.8)
[2021-04-13 08:32] VITALS: BP_SYST 126
[2021-04-13] MEDS: HYDROcodone/ACETAMIN 5-325 MG TAB (NORCO/ VICODIN) PO PRN ×3 (08:43→23:16)
[2021-04-13 12:00] VITALS: BP_SYST 130
[2021-04-13 12:37] LABS: C-REACTIVE PROTEIN QUANT 13.6 mg/dL (0-0.5)
[2021-04-13 13:03] LABS: ERYTHROCYTE SEDIMENTATION RATE 62 MM/HR (0-20)
[2021-04-13 16:00] VITALS: BP_SYST 128
[2021-04-13] MEDS ORDERED: POTASSIUM CHLORIDE 20 MEQ TAB.PRT.SR PO ONE (17:45)
[2021-04-13] MEDS ORDERED: POTASSIUM CHLORIDE 20 MEQ TAB.PRT.SR ONE (18:16)
--- NOTE | 2021-04-13 19:00 | NUR ---
PT. STABLE THE WHOLE SHIFT, GIVEN PAIN MEDS NEEDED, SEEN AMBULATING WITH IN THE HALLWAY AT THIS TIME.
[2021-04-13 20:00] VITALS: BP_SYST 138
--- NOTE | 2021-04-13 20:20 | NUR ---
OPENING NOTE PATIENT SLEEPING IN BED CURRENTLY ON ROOM AIR. NO NOTED SIGN OF PAIN OR DISTRESS.
--- NOTE | 2021-04-13 23:00 | NUR ---
PAIN PATIENT REPORTS PAIN OF 6/10 AT SURGICAL SITE. PRN NORCO WAS GIVEN.
[2021-04-14] VITALS: BP_SYST 136
[2021-04-14] MEDS: LORazepam 2 MG/ML VIAL IVP PRN (03:57)
[2021-04-14] MEDS: D5/0.45 NS 1,000 ML IV SCH (05:13)
[2021-04-14 08:00] VITALS: BP_SYST 131
--- NOTE | 2021-04-14 08:05 | NUR ---
OPENING NOTE PT awake, AxO x4. No signs of respiratory distress, and PT denies pain. PT reports that she has been able to pass gas but still has not had a BM. Drain is patent and surgical site is clean, dry and intact. IV on right forearm is clean, dry and intact. Safety checks were made and call light left within reach.
[2021-04-14] MEDS ORDERED: BISACODYL 5 MG TABLET.DR (DULCOLAX) PO ONE (10:45)
[2021-04-14] MEDS: HYDROcodone/ACETAMIN 5-325 MG TAB (NORCO/ VICODIN) PO PRN ×2 (14:26→21:09)
[2021-04-14 16:00] VITALS: BP_SYST 129
[2021-04-14 20:00] VITALS: BP_SYST 123
--- NOTE | 2021-04-14 20:00 | NUR ---
OPENING NOTE PATIENT IS RESTING IN BED AFTER WALKING 3 TIME UP AND DOWN THE PAREDES. SHE STATED THAT SHE HAS SOME PAIN AT THE SURGICAL SITE. PRN NORCO WILL BE GIVEN.
[2021-04-15 00:15] VITALS: BP_SYST 117
[2021-04-15] MEDS: LORazepam 2 MG/ML VIAL IVP PRN (00:30)
[2021-04-15 01:19] VITALS: BP_SYST 123
--- NOTE | 2021-04-15 06:29 | NUR ---
CLOSING NOTED PATIENT RESTING IN BED. SHE WAS GIVEN PRN MEDICATION OF NORCO AND ATIVAN DURING THE SHIFT. SHE WAS ABLE TO FALL ASLEEP AT 3PM. PATIENT WAS MONITORED FOR SIDE EFFECT OF THE MEDICATION. EDUCATION WAS GIVEN ABOUT INCREASED FALL RISK WITH MEDICATION.
--- NOTE | 2021-04-15 08:00 | NUR ---
NOTES PATIENT AAOX 4. VITALS SIGNS STABLE. AFEBRILE. LUNGS BILATERALLY CLEAR. ABDOMEN SOFT AND NON DISTENDED. HAS SMALL DRESSING X 4. DRY AND INTACT. NO BLEEDING NOTED. HAS IV ACCESS ON THE RT FOREARM #20. SALINE LOCKED. CALL LIGHTS WITHIN REACH. BED LOW POSITION, ALARMED AND LOCKED. WILL CONTINUE
[2021-04-15] MEDS ORDERED: BISACODYL 5 MG TABLET.DR (DULCOLAX) PO SCH (09:00)
--- NOTE | 2021-04-15 09:00 | NUR ---
DUE MEDS GIVEN.
--- NOTE | 2021-04-15 10:00 | NUR ---
PATIENT WALKED WITH THE ON THE HALLWAY MANY TIMES. NO PAIN NOR DISCOMFORT NOTED.
[2021-04-15] MEDS: HYDROcodone/ACETAMIN 5-325 MG TAB (NORCO/ VICODIN) PO PRN (10:26)
[2021-04-15 10:35] VITALS: BP_SYST 116
[2021-04-15] MEDS ORDERED: HYDR-3919 PO (10:52)
[2021-04-15] MEDS ORDERED: BISA-79 PO (10:52)
[2021-04-15] MEDS ORDERED: THEANINE PO SCH (11:00)
[2021-04-15] MEDS ORDERED: traZODone HCL 50 MG TABLET (DESYREL) PO SCH (11:00)
[2021-04-15] MEDS ORDERED: [UNRECOGNIZED DRUG - OTHER] SCH (11:00)
--- NOTE | 2021-04-15 13:01 | NUR ---
Dietitian Recommendations *Recommend: GI Soft Cardiac diet. Please see Nutritional Assessment for details. HU, BRIANNA
--- NOTE | 2021-04-15 14:08 | NUR ---
Spoke w/ Dr Ponce- He stated patient can be discharged to home. She is to follow up w/ him tomorrow 04/16/21 at 4:15 in his office. Please provide instructions on LEILA drain care before DC. Dr Ponce will remove LEILA drain tomorrow in his office.
[2021-04-15 14:11] VITALS: BP_SYST 122
[2021-04-15] MEDS ORDERED: CITALOPRAM HYDROBROMIDE 20 MG TABLET PO ONE (14:45)
[2021-04-15] MEDS ORDERED: PROPRANOLOL HCL 10 MG TABLET (INDERAL) PO SCH (15:00)
--- NOTE | 2021-04-15 15:10 | NUR ---
DUE MEDS GIVEN TO THE PATIENT BEFORE DISCHARGE
--- NOTE | 2021-04-15 15:50 | NUR ---
PATIENT LEFT IN STABLE CONDITION. WANTS A WHEELCHAIR WITH THE . DISCHARGE INSTRUCTIONS GIVEN TO THE PATIENT. FOLLOW UP VISIT WITH DR SAXENA TOMORROW 415PM 04/16/21. PATIENT VERIFY THE OFFICE OF DR SAXENA AND THE FOLLOW UP WITH PCP IN ONE WEEK. INSTRUCTED REGARDING THE NORCO TABLET FOR PAIN AND COLACE. INDICATION AND USAGE, FREQUENCY, AND IMPORTANCE OF IT. INSTRUCTION GIVEN HOW TO EMPTY THE J P DRAIN AND COLOR, WRITE IN A PAPER AND BRING IT DR SAXENA. CARE OF ABDOMINAL DRESSING TOGETHER WITH THE LEILA DRAIN. PATIENT VERBALIZED UNDERSTOOD WELL THE TEACHING AND INSTRUCTIONS.
[2021-04-15 16:53] VITALS: BP_SYST 118
[2021-04-15] MEDS ORDERED: NON-FORMULARY MEDICATION (Progesterone,Micronized (Progesterone) 200 MG) PO SCH (21:00)
[2021-04-16] MEDS ORDERED: CITALOPRAM HYDROBROMIDE 20 MG TABLET PO SCH (09:00)
== END 2021-04-15 16:10 | disposition home or self-care (01) | DRG 417 ==
LOC: SED 17:19 → SMU 23:21
PROVIDERS: ADMIT Preventive Medicine Preventive Medicine/Occupational Environmental Medicine; ATTEND Preventive Medicine Preventive Medicine/Occupational Environmental Medicine
PROC: 0W9G40Z Drainage of Peritoneal Cavity with Drainage Device, Percutaneous Endoscopic Approach (ICD-10-PCS; 2021-04-10)
PROC: 0FT44ZZ Resection of Gallbladder, Percutaneous Endoscopic Approach (ICD-10-PCS; principal; 2021-04-10 17:20)
DX: K80.00 Calculus of gallbladder with acute cholecystitis without obstruction (principal); K85.10 Biliary acute pancreatitis without necrosis or infection; E43 Unspecified severe protein-calorie malnutrition; E87.1 Hypo-osmolality and hyponatremia; K82.1 Hydrops of gallbladder; E03.9 Hypothyroidism, unspecified; E83.39 Other disorders of phosphorus metabolism; Z20.822 Contact with and (suspected) exposure to COVID-19; E83.52 Hypercalcemia; I10 Essential (primary) hypertension; K76.0 Fatty (change of) liver, not elsewhere classified; G43.909 Migraine, unspecified, not intractable, without status migrainosus; F32.9 Major depressive disorder, single episode, unspecified; R73.9 Hyperglycemia, unspecified; E87.6 Hypokalemia; Z88.8 Allergy status to other drugs, medicaments and biological substances; Z79.899 Other long term (current) drug therapy; Z68.25 Body mass index [BMI] 25.0-25.9, adult
CPT/HCPCS: 36415; 74181; 76376; 80048; 80053; 81003; 83690; 83735; 84100; 85025; 85651-TC; 86140; 87081; 88304; 96361; 96374; 96375; 99285; C1727; J0330; J0690; J1170; J1885; J1956; J2060; J2250; J2270; J2370; J2405; J2704; J2765; J3010; J3490; J7050; J7120; Q9967